=== PATIENT | male | born 1985 | race Caucasian/White ===

== ENCOUNTER 2017-11-24 12:55 | Emergency (ER) | payer OTHER, SELFPAY ==
[~2017-11-24 12:55] MED LIST: ISOVUE-370 76%-LOCM 1 ML ONE
[2017-11-24 13:27] LABS: Bilirubin Negative (Negative); Blood, Urine Negative (Negative); Clarity CLEAR (Clear); Glucose, Urine (Dipstick) Negative (Negative); Leukocyte Negative (Negative); Nitrite Negative (Negative); Protein, Urine (Dipstick) Negative (Neg-Trace); Specific Gravity, Urine 1.029 (1.002-1.036); Urobilinogen 0.2 mg/dL (0.2-1.0)
[2017-11-24] MEDS ORDERED: Ondansetron ODT 4 MG TAB ONE (14:00)
[2017-11-24] MEDS ORDERED: HYDROcodone/Acetaminophen 10/325 mg Tablet ONE (14:00)
--- NOTE | 2017-11-24 14:43 | RAD ---
3 VIEWS RIGHT HAND: Date: 11/24/17 HISTORY: Right hand injury, pain in right fourth finger. FINDINGS: There is no evidence of a fracture, dislocation, or other osseous abnormality involving the right kramer d. IMPRESSION: No acute osseous abnormality. POS: [facility]
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
== END 2017-11-24 15:30 | disposition home or self-care (01) ==
LOC: ERS 12:55
DX: Z04.1 Encounter for examination and observation following transport accident (principal); V69.9XXA Occupant (driver) (passenger) of heavy transport vehicle injured in unspecified traffic accident, initial encounter
CPT/HCPCS: 70450; 71045; 74177; 81003; Q0162